=== PATIENT | male | born 1940 | race Caucasian/White ===

== ENCOUNTER → 2020-07-10 10:57 | Outpatient (CLI) | payer MEDICARE, OTHER, SELFPAY | PROVIDERS: PCP Internal Medicine | DX: R53.83 Other fatigue (principal); E63.9 Nutritional deficiency, unspecified; G47.9 Sleep disorder, unspecified; L30.9 Dermatitis, unspecified | CPT/HCPCS: 36415; 99001 ==

== ENCOUNTER → 2020-09-11 08:55 | Outpatient (CLI) | payer MEDICARE, OTHER, SELFPAY ==
[2020-09-11 10:13] LABS: Add Manual Diff / Slide Review NO; Basophils Absolute Auto 0 /uL (0-100); Basophils Percent Auto 0.5 % (0-2); Eosinophils Absolute Auto 200 /uL (0-450); Eosinophils Percent Auto 4.1 % (2-4); Hematocrit 35.4 % (41-53); Hemoglobin 11.9 g/dL (13.5-17.5); Lymphocytes Absolute Auto 1400 /uL (1100-4500); Lymphocytes Percent Auto 25.7 % (25-40); Mean Corpuscular HGB Conc 33.5 % (30-36); Mean Corpuscular Hemoglobin 31.5 PG (26-34); Mean Corpuscular Volume 93.8 fL (80-100); Monocytes Absolute Auto 500 /uL (0-900); Monocytes Percent Auto 8.9 % (3-14); Neutrophils Absolute Auto 3400 /uL (1500-7000); Neutrophils Percent Auto 60.8 % (50-75); Platelet Count 157 X10^3/uL (150-400); Red Blood Cell Count 3.78 X10^6/uL (4.5-5.9); Red Cell Distribution Width 13.5 % (11.6-14.8); White Blood Cell Count 5.6 X10^3/uL (4.5-11.0)
[2020-09-11 10:29] LABS: BUN Creatinine Ratio 18.2 (6-22); Blood Urea Nitrogen 16 mg/dL (9-20); Calcium 9.1 mg/dL (8.4-10.2); Carbon Dioxide 30 mmol/L (22-32); Chloride 106 mmol/L (98-107); Estimated Glomerular Filt Rate > 60.0 mL/min (>60); Glucose 81 mg/dL (80-110); HEMOLYSIS < 15 (0-50); Potassium 4.4 mmol/L (3.4-5.1); Sodium 137 mmol/L (137-145)
[2020-09-11 11:46] LABS: COVID19 -Nasal RAPID Negative (Negative)
== END ==
PROVIDERS: Physician Assistant; PCP Internal Medicine; Referring Provider Orthopaedic Surgery; Visit Provider Orthopaedic Surgery
DX: Z01.818 Encounter for other preprocedural examination (principal); Z01.812 Encounter for preprocedural laboratory examination; Z11.59 Encounter for screening for other viral diseases
CPT/HCPCS: 36415; 80048; 85025; 87635; 93005

== ENCOUNTER 2020-09-12 12:17 | Day surgery (SDC) | payer MEDICARE, OTHER, SELFPAY ==
[2020-09-11 08:19] VITALS: BMI 28.8
[2020-09-12] VITALS (12 sets, daily range): BP systolic 103–133; BP diastolic 47–95; PULSE 65–76; RESP 10–18; TEMP 36–36.6; O2SAT 94–98; BMI 28.8
--- NOTE | 2020-09-12 | DI.RAD.S_ITS ---
PROCEDURE: XR LUMBAR SPINE 2-3V INDICATIONS: L1-3 LAMI TECHNIQUE: 4 views of the lumbar spine were acquired. COMPARISON: None. FINDINGS: Spot fluoroscopic images demonstrating surgical instruments seen in upper lumbar spine posterior paraspinal soft tissues although the exact levels unclear given the absence of anatomic landmarks in the [id number] therefore recommend correlation with real-time observations. Dictated by: Nilay Bishop M.D. on 09/13/2020 at 9:04 Approved by: Nilay Bishop M.D. on 09/13/2020 at 9:16
[2020-09-12] MEDS: LACTATED RINGERS 1,000 ML 42 ML IV ×2 (13:20→15:35)
--- NOTE | 2020-09-12 13:46 | PM.PREOP ---
Pre-operative Note COVID-19 COVID-19 status: Negative Result date/Date tested (Pos, Neg/Pending): 09/11/20 Interval Note History & Physical reviewed/Exam performed by Physician: Yes Changes to H&P: No
[2020-09-12] MEDS: CEFAZOLIN 2 GM/100 ML FROZ.PIGGY IV (14:47)
--- NOTE | 2020-09-12 14:49 | SUR.PREOP ---
Skin barrier prep pds given to [place] to use with EKG pads.
--- NOTE | 2020-09-12 15:12 | SUR.OPER ---
Prone on spine table, head in foam head support, padded chest and pelvic supports, gel pad at knees, lower legs supported by pillows; nipples, genitalia and toes free of pressure, arms secured on foam padded arm boards at <90 degrees abduction. Tape over blanket at thigh secured to table.
[2020-09-12] MEDS: VANCOMYCIN 1,000 MG VIAL 1000 MG TOP (15:17)
[2020-09-12] MEDS: THROMBIN (RECOMBINANT) 5,000 UNIT VIAL 5000 UNIT TOP (15:17)
[2020-09-12] MEDS: SODIUM CHLORIDE 0.9% 1,000 ML, GENTAMICIN 80 MG IRR (15:18)
[2020-09-12] MEDS: BUPIVACAINE 0.25% (PF) 8 ML, fentaNYL 100 MCG INJ (15:18)
--- NOTE | 2020-09-12 17:01 | PM.OP.1 ---
Operative Date/Time/Diagnoses Date of procedure: 09/12/20 Time of procedure: 17:02 Pre-op diagnosis: Lumbar stenosis with radiculopathy Post-op diagnosis: same Procedure & Clinicians Procedure: L1-2, L2-3 laminectomies Use of microscope Placement of epidural catheter Same procedure as scheduled: Yes Indications: [age] year old male with intractable pain from stenosis. They had failed conservative management and requested operative intervention. Risks and benefits of surgery were discussed and appropriate consents were obtained. Surgeon: Manny Taylor Television And Radio Repairer: Enid Diaz Anesthesia Type: General Operative Notes Findings: None Closure Type: primary Specimen(s): none sent Estimated Blood Loss (mL): 20 Procedure in detail: Patient was brought to the operating room and intubated on the table. A time-out was performed. There were rolled over the well-padded prone position on the Eyal table. The back was prepped and draped in standard sterile fashion. Preoperative antibiotics were given. Using fluoroscopy, a 3 cm incision was made to the left of the midline at the L2-3 level. We used Bovie to come down to and split the fascia. We then used the Net[employer]ision MaXcess dilators with fluoroscopy and then opened our retractors. The soft tissue was cleared off with Bovie, a marker was placed, an x-ray was taken to confirm positioning. We then brought in the microscope. A combination of high-speed bur and Kerrison were used to perform a left-sided hemilaminotomy and hemifacetectomy. We carefully depressed the dura and reached across to the opposite side to decompress the facet on the right side and fully open up the canal. We cleared out the foramen. We checked with a ball probe to make sure there was no further tightness. Once everything was adequately decompressed, the wound was copiously irrigated. We then slid the retractor up 1 level to L1-2. Again a left-sided laminectomy was performed with a bur and a Kerrison. This was exceedingly tight with only about 3 mm central canal passage. We had to keep working with the bur until we had more of the facets exposed. We reached across the opposite side and removed the undersurface of the facet and then were able to go back to the left side and cleared this out. At the end of this we had widely opened up the spinal canal. The foramen were open. We used the ball probe confirmed that everything was open. The wound was irrigated. An epidural catheter was filled with 100 mcg of fentanyl and 8 mL of 0.25% Marcaine. The dura was carefully depressed under the laminotomy site and the catheter was advanced 6 cm cephalad. The retractor was removed and the fascia was closed. The epidural catheter was then injected without resistance and removed. Vancomycin powder was placed in the wound. Superficial and skin were closed. Sterile dressing was placed. The patient was then rolled over, transferred to the stretcher, and brought to recovery room without complications. Complications: none Post-operative Condition: stable Disposition: PACU Plan for aftercare: Outpatient. Limited bending, twisting, lifting for 2 weeks.
[2020-09-12] MEDS: fentaNYL 100 MCG/2 ML INJ IV (17:29)
[2020-09-12] MEDS: OXYCODONE/ACETAMINOPHEN 5/325 TABLET 1 TAB PO ×2 (17:39→18:14)
== END 2020-09-12 18:23 | disposition home or self-care (01) ==
PROVIDERS: PCP Internal Medicine; Referring Provider Internal Medicine; Visit Provider Orthopaedic Surgery
PROC: (CPT 63047; principal; 2020-09-12 13:45)
DX: M48.062 Spinal stenosis, lumbar region with neurogenic claudication (principal); I25.10 Atherosclerotic heart disease of native coronary artery without angina pectoris; Z95.1 Presence of aortocoronary bypass graft; M54.16 Radiculopathy, lumbar region
CPT/HCPCS: 63047; 63048; 72100; 76000; 82962; J0330; J0690; J1100; J2405; J2704; J3010

== ENCOUNTER 2025-02-03 10:26 | Emergency (ER) | payer MEDICARE, SELFPAY ==
[2025-02-03] VITALS (18 sets, daily range): BP systolic 105–131; BP diastolic 59–75; PULSE 51–63; RESP 13–21; TEMP 36.6; O2SAT 97–100; BMI 29.7
--- NOTE | 2025-02-03 10:38 | DI.RAD.S_ITS ---
PROCEDURE: XR CHEST 1V INDICATIONS: Shortness of breath TECHNIQUE: One view of the chest was acquired. COMPARISON: None. FINDINGS: Surgical changes and devices: Sternal wires. Lungs and pleura: Lungs are clear. No pleural effusions or pneumothorax. Mediastinum: Mediastinal contours appear normal. Heart size is enlarged. Bones and chest wall: No suspicious bony lesions. Overlying soft tissues appear unremarkable. IMPRESSION: No acute pulmonary process. Dictated by: Nieves Peñaloza M.D. on 02/03/2025 at 11:09 Approved by: Nieves Peñaloza M.D. on 02/03/2025 at 11:09
--- NOTE | 2025-02-03 10:50 | EKG_ITS ---
Merged With [facility] [address] [place] [address] Test Date: 2025-02-03 Pat Name: Radha De León Department: M[facility] With [facility] Room: Gender: Male Watermaster: : 1940 Requested By: Order Number: [id number] Reading MD: Jose Ramon Mead Measurements Intervals [place] Rate: 54 P: 67 WV: 172 QRS: 31 QRSD: 102 T: 56 QT: 526 QTc: 498 Interpretive Statements Sinus bradycardia Prolonged QT Electronically Signed On 02-03-2025 17:06:23 PDT by Jose Raomn Mead
[2025-02-03 11:02] LABS: Add Manual Diff / Slide Review NO; Basophils Absolute Auto 0 /uL (0-100); Basophils Percent Auto 0.8 % (0-2); Eosinophils Absolute Auto 200 /uL (0-450); Eosinophils Percent Auto 2.7 % (2-4); Hematocrit 34.1 % (41-53); Hemoglobin 11.7 g/dL (13.5-17.5); Lymphocytes Absolute Auto 1400 /uL (1100-4500); Lymphocytes Percent Auto 23.4 % (25-40); Mean Corpuscular HGB Conc 34.3 % (30-36); Mean Corpuscular Hemoglobin 32.4 PG (26-34); Mean Corpuscular Volume 94.4 fL (80-100); Monocytes Absolute Auto 500 /uL (0-900); Monocytes Percent Auto 9.1 % (3-14); Neutrophils Absolute Auto 3800 /uL (1500-7000); Platelet Count 146 X10^3/uL (150-400); Red Blood Cell Count 3.62 X10^6/uL (4.5-5.9); Red Cell Distribution Width 13.7 % (11.6-14.8); White Blood Cell Count 5.9 X10^3/uL (4.5-11.0)
[2025-02-03 11:12] LABS: INR 1.6 (0.9-1.3); Prothrombin Time 18.3 SECONDS (9.4-12.5)
--- NOTE | 2025-02-03 11:19 | PC.NURSE ---
IV placed by another nurse
[2025-02-03 11:27] LABS: Lactate (Lactic Acid) 0.9 mmol/L (0.7-2.1)
[2025-02-03 11:28] LABS: Alanine Aminotransferase 57 IU/L (<50); Albumin 4.2 g/dL (3.5-5.0); Albumin Globulin Ratio 1.8 (1.0-2.8); Alkaline Phosphatase 63 U/L (38-126); Aspartate Aminotransferase 56 IU/L (17-59); BUN Creatinine Ratio 26.4 (6-22); Bilirubin Total 0.8 mg/dL (0.2-1.3); Blood Urea Nitrogen 28 mg/dL (9-20); Carbon Dioxide 25 mmol/L (22-32); Chloride 106 mmol/L (98-107); Estimated Glomerular Filt Rate > 60 mL/min (>60); Globulin 2.4 g/dL (1.7-4.1); Glucose 90 mg/dL (70-99); HEMOLYSIS < 15 (0-50); Potassium 4.2 mmol/L (3.4-5.1); Sodium 139 mmol/L (137-145); Total Protein 6.6 g/dL (6.3-8.2)
--- NOTE | 2025-02-03 11:32 | DI.CT.S_ITS ---
PROCEDURE: CT ANGIO CHEST PE PROTOCOL INDICATIONS: SOB TECHNIQUE: After the administration of intravenous contrast, 2 mm thick sections acquired from the pulmonary apices to the posterior costophrenic angles. 3-dimensional maximum intensity projection (MIP) coronal and sagittal reformats were then acquired through the thorax. For radiation dose reduction, the following was used: automated exposure control, adjustment of mA and/or kV according to patient size. COMPARISON: None. FINDINGS: Image quality: Diagnostic. Pulmonary arteries: Pulmonary arteries are normal in size, and demonstrate no intraluminal filling defects to suggest central pulmonary embolism. Lower Neck: No enlarged lymph nodes. Thyroid: No thyroid nodules which require sonographic follow up, per consensus guidelines. Axillae: No enlarged lymph nodes. Chest Wall: Unremarkable. Bones: Unremarkable. Lungs and Pleura: No pneumothorax or pleural effusions. No consolidation or suspicious nodules. Scattered reticular opacities. Mild dependent changes. Heart: Heart size is enlarged. No pericardial effusion. Thoracic Vessels: No aortic aneurysm. Mediastinum and Roz: No enlarged lymph nodes. Esophagus: No wall thickening. Mild hiatal hernia. Upper Abdomen: Multiple low-attenuation hepatic foci. IMPRESSION: No pulmonary embolus. Dependent change is within the bases. Low-attenuation within the liver with multiple appearing consistent with simple cysts. Some are considered indeterminate on the basis of this exam. Dictated by: Nieves Peñaloza M.D. on 02/03/2025 at 12:02 Approved by: Nieves Peñaloza M.D. on 02/03/2025 at 12:05
[2025-02-03 11:39] LABS: NT-proBNP (BNP-Adult 18+) 3610 pg/mL (<450); Troponin I < 0.012 ng/mL (0.01-0.034)
[2025-02-03 12:09] LABS: Base Excess VBG -0.8 mmol/L (0-4); HCO3 VBG 24 mmol/L (24-28); Oxygen Saturation VBG 64 % (70-75); PCO2 VBG 40.7 mmHg (45-50); PO2 VBG 34 mmHg (35-45); Total CO2 VBG 24 mmol/L (24-29); pH VBG 7.38 (7.33-7.43)
[2025-02-03 12:21] LABS: Influenza A - CEPHEID Flu A NEGATIVE (NEGATIVE); Influenza B - CEPHEID Flu B NEGATIVE (NEGATIVE); Respiratory Syncytial Virus Negative (Negative)
[2025-02-03 13:04] LABS: COVID-19 CEPHEID 4-PLEX PCR Negative (Negative)
[2025-02-03] MEDS: FUROSEMIDE 40 MG/4 ML VIAL 20 MG IV (15:18)
--- NOTE | 2025-02-03 21:13 | ED.SOB ---
HPI - SOB/Dyspnea General Chief Complaint: Shortness of Breath/Dyspnea Stated Complaint: Feels like lungs are filling with water again Time Seen by Provider: 02/03/25 11:27 Source: patient Mode of arrival: Ambulatory History of Present Illness HPI Narrative: This 84-year-old male presents to the emergency room with complaint of acute shortness of breath and feeling like his lungs are filling with fluid. He denies any paige pain. He has had no fever or cough. He does have a past history of congestive heart failure. For this problem he is on Lasix 20 mg daily but he is told to increase it by 20 or 40 mg as needed for severe episodes of shortness of breath. The patient [place] and is concerned about missing his [place] and would like to be discharged soon as he has had his workup done an hour or so earlier and it has been waiting a long time. Related Data Home Medications Medication Instructions Recorded Confirmed rosuvastatin 20 mg tablet (Crestor) 20 mg PO QDAY ##0 04/10/12 02/03/25 tamsulosin 0.4 mg capsule (Flomax) 0.4 mg PO QDAY ##0 04/10/12 02/03/25 finasteride 5 mg tablet 5 mg PO DAILY 09/12/20 02/03/25 apixaban 5 mg tablet (Eliquis) 5 mg PO BID 02/03/25 02/03/25 isosorbide mononitrate 30 mg 30 mg PO DAILY 02/03/25 02/03/25 tablet,extended release 24 hr sotalol 80 mg tablet 80 mg PO Q12H 02/03/25 02/03/25 Allergies Allergy/AdvReac Type Severity Reaction Status Date / Time ciprofloxacin Allergy Hives Verified 02/03/25 10:41 amiodarone [AMIODARONE] AdvReac Unknown problem Verified 02/03/25 10:41 with thyroid issues Review of Systems Review of Systems Narrative: All review of systems are negative except for cardiovascular no paige chest pain but sensation of shortness of breath. Respiratory patient feels short of breath and it is so is lungs are full of fluid. He has had no significant peripheral leg swelling. Patient History Medical History (Updated 02/03/25 @ 15:06 by Echo Zarco MD) Skin cancer (~01/2017) Peripheral neuropathy PAF (paroxysmal atrial fibrillation) CAD (coronary artery disease) Surgical History (Updated 09/11/20 @ 08:24 by Dinah Gomes RN) Hx of CABG Social History household members: spouse Smoking Status: Never smoker alcohol intake frequency: holidays/special occasions only Exam Initial Vital Signs Initial Vital Signs: Vital Signs Temperature 98 F 02/03/25 10:35 Pulse Rate 57 L 02/03/25 10:35 Respiratory Rate 17 02/03/25 10:35 Blood Pressure 116/60 02/03/25 10:35 Pulse Oximetry 100 02/03/25 10:35 Oxygen Delivery Method Room Air 02/03/25 10:35 Const Other: Elderly male in no severe distress without marked tachypnea HENMT HENMT Other: Negative Eyes Other: Negative Neck Other: Normal range of motion no stridor Resp Other: Clear breath sounds bilaterally no overt wheezes. Slight atelectatic breath sounds lung bases Cardio Rate: regular rate Rhythm: regular rhythm Other: No murmur GI Other: Nontender adequate bowel sounds no flank tenderness Neuro Other: Oriented x3, cranial nerves 2-7 intact strength, sensation intact Extrem Other: Normal range of motion no edema no calf tenderness Course Course Course Narrative: This 84-year-old male presents to the emergency room with acute shortness of breath. Lab reveals a greatly elevated BNP of 3610. Troponin was negative.EKG revealed a sinus bradycardia rate 55 and a prolonged QT. The patient indicated that he has had a slow heart rate for a number of years in that range. He is saturating 100% on room air. His VBG showed a normal pH without significant CO2 retention. Chest x-ray reveals no pulmonary edema. Was thought that the patient could go home on increased dose of Lasix for a few days after receiving an IV dose of Lasix in the ER today. It was decided to only give a 20 mg IV dose of Lasix since the patient is driving home to [place] [employer]. He was good with this and he will increase his dose of Lasix by 20 mg for a total of 40 mg daily over the next 2 days. He then may return to his normal 20 mg dose daily of Lasix. He should follow up with his software quality assurance analyst in the next 1-2 weeks. He was very anxious to catch his very and did not want to stay for further studies. He was discharged in stable condition. He did feel improved. Orders Ordered: Discontinued Medications Furosemide (Furosemide 40 Mg/4 Ml Vial) 20 mg IV NOW ONE Stop: 02/03/25 15:04 Last Admin: 02/03/25 15:18 Dose: 20 mg Documented By: MIGDALIA Vital Signs Vital signs: Vital Signs - 8 hr 02/03/25 13:30 02/03/25 14:00 02/03/25 14:25 Pulse Rate 54 L 56 L 54 L Respiratory Rate 13 16 21 Blood Pressure Pulse Oximetry 99 100 100 Oxygen Delivery Method 02/03/25 14:25 02/03/25 14:30 02/03/25 14:30 Pulse Rate 55 L Respiratory Rate 14 Blood Pressure 125/67 128/67 Pulse Oximetry 99 Oxygen Delivery Method 02/03/25 15:00 02/03/25 15:00 02/03/25 15:37 Pulse Rate 58 L 63 Respiratory Rate 14 Blood Pressure 131/70 Pulse Oximetry 100 100 Oxygen Delivery Method 02/03/25 15:38 02/03/25 15:38 02/03/25 16:09 Pulse Rate 61 61 Respiratory Rate 14 Blood Pressure 131/75 131/75 Pulse Oximetry 100 100 Oxygen Delivery Method Room Air MDM - SOB/Dyspnea Medical Records Medical records narrative: Differential includes CHF versus pneumonia versus acute asthma versus COPD or PE. From the patient's lab results here with the appear that he is having an exacerbation of CHF but he does not have pulmonary edema on chest x-ray. He had his Lasix increased briefly and he should follow up with his software quality assurance analyst in the next 1-2 weeks. Lab Data 02/03/25 10:50 02/03/25 10:50 Labs: Lab Results 02/03/25 02/03/25 02/03/25 Range/Units 10:50 11:34 12:05 WBC 5.9 (4.5-11.0) X10^3/uL RBC 3.62 L (4.5-5.9) X10^6/uL Hgb 11.7 L (13.5-17.5) g/dL Hct 34.1 L (41-53) % MCV 94.4 (80-100) fL MCH 32.4 (26-34) PG MCHC 34.3 (30-36) % RDW 13.7 (11.6-14.8) % Plt Count 146 L (150-400) X10^3/uL Neut % (Auto) 64.0 (50-75) % Lymph % (Auto) 23.4 L (25-40) % [place] % (Auto) 9.1 (3-14) % Eos % (Auto) 2.7 (2-4) % Baso % (Auto) 0.8 (0-2) % Neut # (Auto) 3800 (0228-8754) /uL Lymph # (Auto) 1400 (5764-6370) /uL J[place]uld # (Auto) 500 (0-900) /uL Eos # (Auto) 200 (0-450) /uL Baso # (Auto) 0 (0-100) /uL PT 18.3 H (9.4-12.5) SECONDS INR 1.6 H (0.9-1.3) VBG pH 7.38 (7.33-7.43) VBG pCO2 40.7 L (45-50) mmHg VBG pO2 34 L (35-45) mmHg VBG HCO3 24 (24-28) mmol/L VBG Total CO2 24 (24-29) mmol/L VBG O2 Saturation 64 L (70-75) % VBG Base Excess -0.8 L (0-4) mmol/L FiO2 % 21.0 % % Sodium 139 (137-145) mmol/L Potassium 4.2 (3.4-5.1) mmol/L Chloride 106 (98-107) mmol/L Carbon Dioxide 25 (22-32) mmol/L BUN 28 H (9-20) mg/dL Creatinine 1.06 (0.66-1.25) mg/dL Estimated GFR > 60 (>60) mL/min BUN/Creatinine Ratio 26.4 H (6-22) Glucose 90 (70-99) mg/dL Lactate 0.9 (0.7-2.1) mmol/L Calcium 9.0 (8.4-10.2) mg/dL Total Bilirubin 0.8 (0.2-1.3) mg/dL AST 56 (17-59) IU/L ALT 57 H (<50) IU/L Alkaline Phosphatase 63 (38-126) U/L Troponin I < 0.012 (0.01-0.034) ng/mL NT-Pro-B Natriuret Pep 3610 H (<450) pg/mL Total Protein 6.6 (6.3-8.2) g/dL Albumin 4.2 (3.5-5.0) g/dL Globulin 2.4 (1.7-4.1) g/dL Albumin/Globulin Ratio 1.8 (1.0-2.8) SARS-CoV-2 (PCR) Negative (Negative) Influenza A (RT-PCR) Flu a negative (NEGATIVE) Influenza B (RT-PCR) Flu b negative (NEGATIVE) RSV (PCR) Negative (Negative) Discharge Plan Departure Patient Disposition: Home Clinical Impression: Congestive heart failure Qualifiers: Heart failure type: unspecified Heart failure chronicity: acute on chronic Qualified Code(s): I50.9 - Heart failure, unspecified Activity Restrictions/Additional Instructions: Take an extra 20 mg p.o. Lasix tablet daily for the next 2-3 days and then resume normal 20 mg p.o. daily dose. See your regular provider as scheduled to evaluate further dosing of Lasix. Prescriptions: No Action tamsulosin [Flomax] 0.4 MG capsule,extended release 24hr 0.4 mg PO QDAY Qty: 0 rosuvastatin [Crestor] 20 MG tablet 20 mg PO QDAY Qty: 0 finasteride 5 mg tablet 5 mg PO DAILY sotalol 80 mg tablet 80 mg PO Q12H isosorbide mononitrate 30 mg tablet extended release 24 hr 30 mg PO DAILY Eliquis 5 mg tablet 5 mg PO BID Referrals: Jayden Capps MD [Primary Care Provider] - Stand Alone Forms: Patient Portal/API/Survey
== END 2025-02-03 16:13 | disposition home or self-care (01) ==
PROVIDERS: Emergency Provider Emergency Medicine; PCP Internal Medicine
DX: I50.9 Heart failure, unspecified (principal); Z79.01 Long term (current) use of anticoagulants
CPT/HCPCS: 0241U; 36415; 71045; 71275; 80053; 82805; 83605; 83880; 84484; 85025; 85610; 93005; 96374; 99284; J1938